=== PATIENT | male | born 1990 | race Caucasian/White ===

== ENCOUNTER 2017-03-30 17:13 | Emergency (ER) | payer SELFPAY ==
[2017-03-30 17:30] VITALS: BP 137/83
[2017-03-30] MEDS ORDERED: Ketorolac 60 MG/2 ML SDV IM ONE (17:41)
[2017-03-30] MEDS ORDERED: cefTRIAXone 1 GM, Lidocaine 1% 2.1 ML IM ONE ×2 (17:41)
--- NOTE | 2017-03-30 17:48 | EDM.PDOC ---
ED HPI GENERAL MEDICAL PROBLEM - General Chief Complaint: Wound Recheck Stated Complaint: INFECTION Time Seen by Provider: 03/30/17 17:35 Source of Information: Reports: Patient History Limitations: Reports: No Limitations - History of Present Illness INITIAL COMMENTS - FREE TEXT/NARRATIVE: 26 years old male patient presented with chief complaint of pain, swelling and redness of his left thumb. He poked himself with sharp object earlier this week. Started having pain and swelling in his left thumb. Progressively getting worse. He tried to pop it with a needle earlier today and had some bloody discharge coming out. Denies any fever. Denies any chest pain or shortness breath. No other injuries. - Related Data Allergies Allergy/AdvReac Type Severity Reaction Status Date / Time No Known Allergies Allergy Verified 03/30/17 17:23 Home Meds: Home Meds NK [No Known Home Meds] 12/03/15 [History] Past Medical History HEENT History: Reports: Impaired Vision Musculoskeletal History: Reports: Fracture, Other (See Below) Other Musculoskeletal History: left foot fracture Neurological History: Reports: Concussion Psychiatric History: Reports: Anxiety, Dementia, PTSD - Infectious Disease History Infectious Disease History: Reports: Chicken Pox Social & Family History - Tobacco Use Smoking Status *Q: Current Every Day Smoker Years of Tobacco use: 8 Packs/Tins Daily: 1 - Recreational Drug Use Recreational Drug Use: No ED ROS GENERAL - Review of Systems Review Of Systems: ROS reveals no pertinent complaints other than HPI. ED EXAM, SKIN/RASH Exam: See Below Exam Limited By: No Limitations General Appearance: Alert, WD/WN, No Apparent Distress Ears: Normal External Exam, Normal Canal, Hearing Grossly Normal, Normal TMs Head: Atraumatic, Normocephalic Neck: Normal Inspection, Supple, Non-Tender, Full Range of Motion Respiratory/Chest: No Respiratory Distress, Lungs Clear, Normal Breath Sounds, No Accessory Muscle Use, Chest Non-Tender Cardiovascular: Normal Peripheral Pulses, Regular Rate, Rhythm, No Edema, No Gallop, No JVD, No Murmur, No Rub GI/Abdominal: Normal Bowel Sounds, Soft, Non-Tender, No Organomegaly, No Distention, No Abnormal Bruit, No Mass Extremities: Redness (Left thumb erythema, swelling and tenderness. CMS intact. No abscess.) Course - Vital Signs Last Recorded V/S: Last Vital Signs Temp 36.2 C 03/30/17 17:28 Pulse 104 H 03/30/17 17:28 Resp 14 03/30/17 17:28 BP 137/83 03/30/17 17:28 Pulse Ox 95 03/30/17 17:28 - Orders/Labs/Meds Meds: Medications Discontinued Medications Generic Name Dose Route Start Last Admin Trade Name Mamie PRN Reason Stop Dose Admin Ceftriaxone Sodium 1 gm/ 0 gm 03/30/17 17:41 Lidocaine HCl 2.1 ml IM 03/30/17 17:42 ONETIME ONE Ketorolac Tromethamine 60 mg 03/30/17 17:41 Toradol IM 03/30/17 17:42 ONETIME ONE - Re-Assessments/Exams Free Text/Narrative Re-Assessment/Exam: 03/30/17 17:47 Patient was seen and examined shortly after arrival. Stable. Cellulitis of the left thumb. It is up-to-date for his tetanus. Given 1 g IM Rocephin. 60 mg IM Toradol. Symptom improved. Given prescription for Bactrim to be used for 10 days. No sign of abscess at this point and I don't think there is any pus collections and need to be drained. However patient was advised if it's not getting any better or getting any worse to come back for reevaluation. Tylenol or ibuprofen for discomfort or fever. Come back if symptom worsen. Close follow- up with her primary doctor in the clinic in 2 days. Patient agrees with the plan. Stable for discharge 03/30/17 17:49 03/30/17 17:52 Departure - Departure Time of Disposition: 17:49 Disposition: Home, Self-Care 01 Condition: Good Clinical Impression: Cellulitis - Discharge Information Instructions: Wound Infection, [id number] Referrals: PCP,None [Primary Care Provider] - Additional Instructions: owever patient was advised if it's not getting any better or getting any worse to come back for reevaluation. Tylenol or ibuprofen for discomfort or fever. Come back if symptom worsen. Close follow-up with her primary doctor in the clinic in 2 days. - Assessment/Plan Plan: owever patient was advised if it's not getting any better or getting any worse to come back for reevaluation. Tylenol or ibuprofen for discomfort or fever. Come back if symptom worsen. Close follow-up with her primary doctor in the clinic in 2 days.
== END 2017-03-30 18:10 | disposition home or self-care (01) ==
LOC: JP.ED 17:13
DX: L03.012 Cellulitis of left finger (principal); F17.210 Nicotine dependence, cigarettes, uncomplicated
CPT/HCPCS: 96372; 99283; J0696; J1885